=== PATIENT | female | born 1930 | race Caucasian/White ===

== ENCOUNTER 2016-12-15 12:40 | Inpatient (IN) | payer BC, OTHER ==
[~2016-12-15] VITALS: Ht 160 cm; Wt 56.5 kg
[~2016-12-15 12:40] MED LIST: AMB10 PO; BNC/20125 PO; NAPR250T3 PO; OXYC-57 PO; PROM25TA PO; SYN75 PO; TRAM-10 PO
[2016-12-15 13:08] LABS: HEMATOCRIT 30.7 % (37-47); MEAN CELL VOLUME 94.8 fL (80-100); MEAN CORPUSCULAR HEMOGLOBIN 31.5 pg (25-34); MEAN CORPUSCULAR HGB CONC 33.2 g/dl (32-36); MEAN PLATELET VOLUME 10.3 fL (7.4-10.4); PLATELET COUNT 164 K/uL (130-400); RED BLOOD COUNT 3.24 M/uL (4.2-5.4); WHITE BLOOD COUNT 6.08 K/uL (4.8-10.8)
[2016-12-15] MEDS ORDERED: SODIUM CHLORIDE 0.9% 500ML 500 ML IV STA (13:13)
[2016-12-15] MEDS ORDERED: SODIUM CHLORIDE 0.9% 1000ML 1,000 ML IV STA ×2 (13:13→14:36)
[2016-12-15 13:25] LABS: INR 1.1 (0.9-1.1); PARTIAL THROMBOPLASTIN RATIO 0.9; PROTHROMBIN TIME (PATIENT) 11.4 SECONDS (9.0-12.0)
[2016-12-15 13:26] LABS: BUN/CREATININE RATIO 67.4 (10-20); CREATININE 0.87 mg/dl (0.60-1.20); POTASSIUM 4.2 mmol/L (3.5-5.1)
[2016-12-15 13:29] LABS: ALB/GLOB RATIO 1.1 (0.9-2)
[2016-12-15] MEDS ORDERED: PANTOprazole INJ 80 MG in DEXTROSE 5% 100ML IV ONE (13:30)
[2016-12-15 13:34] LABS: CALCIUM 8.2 mg/dl (8.5-10.1)
[2016-12-15] MEDS ORDERED: PANTOprazole INJ 40 MG in DEXTROSE 5% 100ML IV SCH (13:45)
--- NOTE | 2016-12-15 13:45 | DIAGNOSTIC IMAGING REPORT ---
CHEST ONE VIEW PORTABLE CLINICAL HISTORY: vomiting DIARRHEA. COMPARISON STUDY: 12/21/2012 FINDINGS: The cardiac and mediastinal contours are normal. There is no evidence of focal pulmonary consolidation. There is no evidence of failure. No pleural effusions are visualized.[ Underlying emphysema is suspected. IMPRESSION: No active disease in the chest. Electronically signed by: David Espinal M.D. 12/15/2016 1:43 PM Dictated Date/Time: 12/15/2016 1:43 PM
[2016-12-15] MEDS ORDERED: ZOLPIDEM TARTRATE 5 MG TAB PO PRN (14:45)
[2016-12-15] MEDS ORDERED: MAGNESIUM HYDROXIDE SUSP 30 ML UDC PO PRN (14:45)
[2016-12-15] MEDS ORDERED: ALUMINUM/MAGNESIUM/SIMETH (MAALOX MAX) 30 ML UDC PO PRN (14:45)
[2016-12-15] MEDS ORDERED: POLYETHYLENE (MIRALAX) 17 GM PACK PO PRN (14:45)
[2016-12-15] MEDS ORDERED: ONDANSETRON INJ 2 MG/ML 2 ML VIAL IV PRN (14:45)
--- NOTE | 2016-12-15 15:21 | History and Physical ---
History & Physical Date & Time of Service: December 15, 2016 at 15:19 Chief Complaint: Diarrhea, Vomiting, Possible Blood In Both Primary Care Physician: Will Jones M.D. History of Present Illness Source: patient, family Ms. White is an 86 y/o female with PMHx of Hypothyroidism, Hypertension, and OA who presents to the ED for melena and hematemesis. Patient states that she was feeling well up until approximately 2 AM when she began feeling ill and had multiple episodes of diarrhea and hematemesis. These episodes occurred from 2 AM to approximately 5:30 AM and reports approximately 3 episodes of each. She reports the hematemesis was present from the very first emesis. She denies having similar symptoms in the past. Associated generalized weakness and lightheadedness. States she had difficulty ambulating to the bathroom due to this but denies falls. Daughter at bedside feels that patient appears pale. Patient also reports increased flatus over the past couple weeks but denies abdominal pain. Med reconciliation on file is inaccurate and she no longer takes naproxen. However she does report ASA 81 mg daily and takes Aleve once a day but does not know the dose. She does report taking more Aleve due to having limited tramadol. She reports having 1 glass of wine most nights of the week but does not drink in excess. She denies history of liver dysfunction. She denies history of EGD or colonoscopies. Patient reports eating for saltine crackers with some peanut butter and a decaffeinated tea at approximately 10:30 AM and no other oral intake. In the ED, patient is afebrile and without leukocytosis. Blood pressures systolic less than 100. Her patient her normal BPs are in low 100s. She received 500 mL bolus and started on protonix gtt. Hemoglobin 10.2. She will be admitted to telemetry for acute GI bleed. Discussed case with Dr. Lerner who is planning for EGD today. Past Medical/Surgical History Medical Problems: (1) Arthritis Status: Chronic (2) Hypothyroidism Status: Chronic Family History Hypertension Social History Smoking Status: Never Smoker Smokeless Tobacco Use: No Alcohol Use: occasionally (1 glass of wine most nights a week) Drug Use: none Marital Status: Occupational Status: retired Immunizations History of Tetanus Vaccine?: Unknown History of Pneumococcal: Unknown History of Hepatitis B Vaccine: Unknown Multi-Drug Resistant Organisms History of MDRO: No Allergies Coded Allergies: Codeine (Verified Allergy, Unknown, 09/05/09) Home Medications Scheduled Levothyroxine (Synthroid *), 0.075 MG PO DAILY Naproxen Tab (Naprosyn), 250 MG PO BID Olmesartan/Hctz (Benicar Hct 20/12.5), 1 TAB PO DAILY Oxycodone/Acetaminophen 5MG/325MG (Percocet 5MG/325MG), 1-2 TAB PO Q4HR PRN Promethazine (Phenergan), 25 MG PO Q6HR PRN Tramadol (Ultram), 37.5 MG PO Q4HR Zolpidem Tartrate (Ambien *), 10 MG PO HS PRN Review of Systems Constitutional: + fatigue, + problem reported (headache), + weakness ( generalized), No chills, No fever Eyes: No worsening of vision ENT: No nasal symptoms, No sore throat, No trouble swallowing Respiratory: No cough, No shortness of breath Cardiovascular: No chest pain, No palpitations Abdomen: + GI bleeding, + diarrhea, + nausea, + vomiting, No constipation, No pain Musculoskeletal: + joint pain (chronic - OA), No calf pain, No swelling Genitourinary - Female: No dysuria Integumentary: No rash Physical Exam Vital Signs Date Time Temp Pulse Resp B/P Pulse Ox O2 Delivery O2 Flow Rate FiO2 12/15/16 14:29 65 18 101/59 96 Room Air 12/15/16 13:48 74 18 95/57 95 Room Air 12/15/16 12:58 97 Room Air 12/15/16 12:57 97 Room Air 12/15/16 12:55 78 18 95/77 96 Room Air 12/15/16 12:54 81 12/15/16 12:45 36.7 95 18 95/58 95 Room Air General Appearance: WD/WN, no apparent distress Head: normocephalic, atraumatic Eyes: PERRL, sclerae normal ENT: hearing grossly normal Neck: supple, no JVD, trachea midline Respiratory/Chest: lungs clear, normal breath sounds, no respiratory distress, no accessory muscle use Cardiovascular: regular rate, rhythm, no gallop, no murmur Abdomen/GI: normal bowel sounds, non tender, soft Extremities/Musculoskelatal: no calf tenderness, no pedal edema Neurologic/Psych: alert, oriented x 3 Skin: warm/dry, + pallor Diagnostics Laboratory Results Results Past 24 Hours Test 12/15/16 12:52 Range/Units White Blood Count 6.08 4.8-10.8 K/uL Red Blood Count 3.24 4.2-5.4 M/uL Hemoglobin 10.2 12.0-16.0 g/dL Hematocrit 30.7 37-47 % Mean Corpuscular Volume 94.8 80-100 fL Mean Corpuscular Hemoglobin 31.5 25-34 pg Mean Corpuscular Hemoglobin Concent 33.2 32-36 g/dl RDW Standard Deviation 49.5 36.4-46.3 fL RDW Coefficient of Variation 14.3 11.5-14.5 % Platelet Count 164 130-400 K/uL Mean Platelet Volume 10.3 7.4-10.4 fL Prothrombin Time 11.4 9.0-12.0 SECONDS Prothromb Time International Ratio 1.1 0.9-1.1 Activated Partial Thromboplast Time 23.1 21.0-31.0 SECONDS Partial Thromboplastin Ratio 0.9 Sodium Level 137 136-145 mmol/L Potassium Level 4.2 3.5-5.1 mmol/L Chloride Level 103 98-107 mmol/L Carbon Dioxide Level 25 21-32 mmol/L Anion Gap 9.0 3-11 mmol/L Blood Urea Nitrogen 59 7-18 mg/dl Creatinine 0.87 0.60-1.20 mg/dl Est Creatinine Clear Calc Drug Dose 37.7 ml/min Estimated GFR () 69.4 Estimated GFR (Non- 59.9 BUN/Creatinine Ratio 67.4 10-20 Random Glucose 114 70-99 mg/dl Calcium Level 8.2 8.5-10.1 mg/dl Total Bilirubin 0.5 0.2-1 mg/dl Aspartate Amino Transf (AST/SGOT) 17 15-37 U/L Alanine Aminotransferase (ALT/SGPT) 23 12-78 U/L Alkaline Phosphatase 43 45-117 U/L Troponin I < 0.015 0-0.045 ng/ml Total Protein 5.9 6.4-8.2 gm/dl Albumin 3.1 3.4-5.0 gm/dl Globulin 2.8 2.5-4.0 gm/dl Albumin/Globulin Ratio 1.1 0.9-2 Diagnostic Radiology CHEST ONE VIEW PORTABLE CLINICAL HISTORY: vomiting DIARRHEA. COMPARISON STUDY: 12/21/2012 FINDINGS: The cardiac and mediastinal contours are normal. There is no evidence of focal pulmonary consolidation. There is no evidence of failure. No pleural effusions are visualized.[ Underlying emphysema is suspected. IMPRESSION: No active disease in the chest. EKG Sinus rhythm with marked sinus arrhythmia Nonspecific ST and T wave abnormality Low voltage QRS Borderline ECG When compared with ECG of 31-OCT-2006 16:22, No significant change was found Confirmed by David Chavez ([id number]) on 12/15/2016 2:22:47 PM Impression Assessment and Plan Ms. White is an 86 y/o female with PMHx of Hypothyroidism, Hypertension, and OA who presents to the ED for melena and hematemesis. Patient states that she was feeling well up until approximately 2 AM when she began feeling ill and had multiple episodes of diarrhea and hematemesis. Acute GI Bleed with Mild Hypotension 2/2 Gastric Ulceration: EGD 12/15 - 1 L NSS at 100 mL/hr stat then continue gentle hydration at 80 mL/hr - hypotension resolved - Continue protonix gtt - Trend H&H but suspect stablization S/P EGD intervention - if hgb would drop - consent for transfusion on chart - Consult GI - discussed case with Dr. 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 I discussed the case with PA and agree with the findings and plan as documented in the note. Any exceptions or clarifications are listed here: Fairly healthy elderly female with Hx hypothyroidism presenting with hematemesis and black liquidy stool x 1 day. Denied CP, SOB, light head - no previous Hx of GI bleed - does take ASA and Aleve daily in addition to drinking 1 glass wine QHS. OE AAO x 3 S1,2 R CTAB NT, ND, BS+ No edema P: Protonix Trend Hb and transfuse PRN GI consult IVF and antiemetics as needed Above discussed with PA and Pt Documented By: Alex Quigley Level of Care Telemetry Resuscitation Status FULL RESUSCITATION VTE Prophylaxis VTE Risk Assessment Done? Y/N: Yes Risk Level: Moderate Given or contraindicated: T.E.D. Stockings, SCD's
[2016-12-15] MEDS ORDERED: PROPOFOL IV EMULSION 10 MG/ML 20 ML VIAL IV ONE ×2 (15:58→16:30)
[2016-12-15] MEDS ORDERED: LIDOCAINE HCL 2% 2 ML VIAL (20MG/ML) ONE (15:58)
--- NOTE | 2016-12-15 16:11 | History & Physical Bridge Note ---
H&P Re-Evaluation Bridge Note: I have examined the patient, reviewed the History & Physical and in the interval since the performance of the History & Physical I have noted the following changes of clinical significance: AAOx3 Nls1s2 Lungs CTA Abd soft NT/ND + BS - CCE Plan for EGD possible hemostatic therapy
--- NOTE | 2016-12-15 16:22 | GASTROINTESTINAL CONSULTATION ---
DATE OF CONSULTATION: 12/15/2016 REASON FOR CONSULTATION: Hematemesis and melena. HISTORY OF PRESENT ILLNESS: Mrs. White is an 86-year-old white female in overall good health with hypothyroidism and hypertension who presented to the Emergency Room today with an approximate 1 day history of hematemesis and dark stools that were preceded by diarrhea. The patient usually takes an aspirin daily and perhaps one Aleve daily along with tramadol; however, she had run out of tramadol for the past week or so and had taken more Aleve over the last 5 days. There is also a naproxen scheduled at home. The patient has no prior peptic ulcer disease, has not had any weight loss or abdominal pain associated with this and had 3 episodes of hematemesis during this event. The patient has no prior history of peptic ulcer disease. There is no chronic weight loss. PAST MEDICAL HISTORY: As mentioned above including arthritis, hypothyroidism and hypertension. HOME MEDICATIONS: Include levothyroxine, naproxen 250 mg twice daily, hydrochlorothiazide (olmesartan/Benicar), Percocet, Phenergan, tramadol and Ambien. The patient also takes aspirin 325 mg daily. ALLERGIES: SHE IS ALLERGIC TO CODEINE. FAMILY HISTORY: Otherwise noncontributory. SOCIAL HISTORY: The patient denies tobacco and only occasionally drinks an alcoholic beverage. There is no chronic history of alcohol use. The patient is , lives with her daughter. REVIEW OF SYSTEMS: Otherwise noncontributory based on 14-point exam except for mentioned above. The patient does not experience chronic diarrhea or constipation. The patient presented to the Emergency Room at approximately 12:00 noon. PHYSICAL EXAMINATION: VITAL SIGNS: On admission - blood pressure 95/58, respirations 18, pulse 95, 36.7 temperature, O2 saturation is 95% on room air. Blood pressure responded to fluids. LABORATORY STUDIES: On admission, her white count was 6.0 with an H\T\H of 10.2 and 30.7 with an MCV of 94 and a normal RDW. Platelets are 164,000. INR is 1.1. LFTs were normal. BUN and creatinine were 59 and 0.8. Total bilirubin 0.5, alkaline phosphatase 43, ALT 23, AST 17. Troponins were less than 0.015. Albumin 3.1, total protein 5.9. IMAGING DATA: The patient underwent chest x-ray, which was unrevealing for active disease. EKG showed sinus arrhythmia, borderline EKG with low voltage. IMPRESSION AND PLAN: The patient with acute onset of hematemesis, diarrhea and melenic stools for short duration. The patient had recently increased her Aleve usage at home because her Ultram had run out and had not been yet provided by her insurance. It appears she is also on naproxen. The differential diagnosis likely includes non-steroidal anti-inflammatory drugs induced gastritis, peptic ulcer disease. It is possible that Nancy-Curry tear may be a culprit. There is no liver markers abnormal or chronic history of liver disease to suggest a portal hypertensive source. We made the following recommendations: Will continue IV fluids, PPI and follow hemoglobin q. 12 hours for 24 hours with hydration and will plan for an upper endoscopy today. Further recommendations to follow once the upper endoscopy is completed. We will discuss the need for a lower endoscopy depending on the results of the EGD that will happen over the next hour.
[2016-12-15] MEDS ORDERED: ONDANSETRON INJ 2 MG/ML 2 ML VIAL ONE (16:53)
[2016-12-15] MEDS ORDERED: ONDANSETRON INJ 2 MG/ML 2 ML VIAL IV STA (16:55)
--- NOTE | 2016-12-15 17:10 | Anesthesiology Progress Note ---
Anesthesia Post Op Note Date & Time December 15, 2016 at 17:10 Vital Signs Pain Intensity: 0 Vital Signs Past 12 Hours Date Time Temp Pulse Resp B/P Pulse Ox O2 Delivery O2 Flow Rate FiO2 12/15/16 17:02 75 16 157/88 97 Room Air 12/15/16 16:47 88 16 164/96 100 Mask 10 12/15/16 16:02 36.6 72 20 115/70 97 Room Air 12/15/16 14:29 65 18 101/59 96 Room Air 12/15/16 13:48 74 18 95/57 95 Room Air 12/15/16 12:58 97 Room Air 12/15/16 12:57 97 Room Air 12/15/16 12:55 78 18 95/77 96 Room Air 12/15/16 12:54 81 12/15/16 12:45 36.7 95 18 95/58 95 Room Air Notes Mental Status: alert / awake / arousable, participated in evaluation Pt Amnestic to Procedure: Yes Nausea / Vomiting: adequately controlled Pain: adequately controlled Airway Patency, RR, SpO2: stable & adequate BP & HR: stable & adequate Hydration State: stable & adequate Anesthetic Complications: no major complications apparent
--- NOTE | 2016-12-15 17:39 | GI REPORT ---
Procedure Date: 12/15/2016 4:10 PM Procedure: Upper GI endoscopy Indications: Hematemesis, Melena Medicines: Propofol per Anesthesia Complications: No immediate complications. Estimated blood loss: Minimal. Estimated Blood Loss: Estimated blood loss was minimal. Procedure: Pre-Anesthesia Assessment: - Prior to the procedure, a History and Physical was performed, and patient medications and allergies were reviewed. The patient's tolerance of previous anesthesia was also reviewed. The risks and benefits of the procedure and the sedation options and risks were discussed with the patient. All questions were answered, and informed consent was obtained. Prior Anticoagulants: The patient has taken no previous anticoagulant or antiplatelet agents. ASA Grade Assessment: II - A patient with mild systemic disease. After reviewing the risks and benefits, the patient was deemed in satisfactory condition to undergo the procedure. After obtaining informed consent, the endoscope was passed under direct vision. Throughout the procedure, the patient's blood pressure, pulse, and oxygen saturations were monitored continuously. The scope was introduced through the mouth, and advanced to the second part of duodenum. The upper GI endoscopy was accomplished without difficulty. The patient tolerated the procedure well. Findings: The examined esophagus was normal. A low-grade of narrowing, non-obstructing and mild Schatzki ring (acquired) was found at the gastroesophageal junction. A hiatus hernia was found. The proximal extent of the gastric folds (end of tubular esophagus) was 35 cm from the incisors. The hiatal narrowing was 38 cm from the incisors. The Z-line was 35 cm from the incisors. Hematin (altered blood/esjukf-ivsxdn-nchv material) was found in the entire examined stomach. One oozing cratered gastric ulcer with a visible vessel was found on the greater curvature of the stomach. The lesion was 25 mm in largest dimension. Area was successfully injected with 9 mL of a 1:10,000 solution of epinephrine for hemostasis. Fulguration to ablate the lesion to prevent bleeding by bipolar probe was successful. For hemostasis, two hemostatic clips were successfully placed (MR conditional). There was no bleeding at the end of the procedure. Hematin (altered blood/ktgkrm-vccrof-xyob material) was found in the entire examined stomach. An acquired benign-appearing, intrinsic mild stenosis was found at 2nd part of the duodenum and was traversed. The cardia and gastric fundus were normal on retroflexion. Impression: - Normal esophagus. - Low-grade of narrowing, non-obstructing and mild Schatzki ring. - Hiatus hernia. - Hematin (altered blood/ngfbiw-snreno-jtjm material) in the entire stomach. - Oozing gastric ulcer with a visible vessel. Injected. Treated with bipolar cautery. Clips (MR conditional) were placed. - Hematin (altered blood/agswxh-wojfka-xeok material) in the entire stomach. - Acquired duodenal stenosis. - No specimens collected. Recommendation: - [facility]. - Clear liquid diet today. - Repeat the upper endoscopy in 2 months to check healing and dilation of Schatzki ring.. - Use a proton pump inhibitor PO BID. - No aspirin, ibuprofen, naproxen, or other non-steroidal anti-inflammatory drugs. MD Kevin Costa MD 12/15/2016 5:39:12 PM This report has been signed electronically. Note Initiated On: 12/15/2016 4:10 PM I attest to the content of the Intraoperative Record and orders documented therein, exceptions below
--- NOTE | 2016-12-15 17:49 | EMERGENCY ROOM VISIT NOTE ---
History Report prepared by Kam: Ashely Headley Under the Supervision of: Dr. Davis Porras M.D. First contact with patient: 13:11 Chief Complaint: GI ASSESSMENT Stated Complaint: DIARRHEA, VOMITING, POSSIBLE BLOOD IN BOTH Nursing Triage Summary: Pt reports she had episodes of bright red blood in stool and bright red blood in emesis this am. pt reports feeling dizzy. pt denies any hx of gi bleed in the past. History of Present Illness The patient is an 86 year old female who presents to the Emergency Room with complaints of persistent diarrhea starting 0200 this morning. She was feeling well all day yesterday. When she went to bed, she was feeling well. She woke up around 0130, she felt unwell. She started having diarrhea and vomiting. She reports her diarrhea was very dark and she was vomiting blood. She had symptoms until 0530. She has never experienced this before. She reports feeling weak and lightheaded. Her daughter notes that she appears slightly pale. She denies any abdominal pain, chest pain, or SOB. She takes 1 baby aspirin a day. She is on a thyroid medication and tramadol for arthritis. Source of History: patient Onset: 0200 this morning Position: other (global) Quality: other (diarrhea) Timing: other (persistent) Associated Symptoms: + melena, + vomiting, + weakness, No SOB, No abdominal pain, No chest pain Note: Pt reports hematemesis, lightheadedness, pale. Review of Systems See HPI for pertinent positives & negatives. A total of 10 systems reviewed and were otherwise negative. Past Medical & Surgical Medical Problems: (1) Arthritis (2) Hypothyroidism (3) Melena Family History Non contributory secondary to age. Social History Smoking Status: Never Smoker Drug Use: none Marital Status: Occupation Status: retired Current/Historical Medications Scheduled Levothyroxine (Synthroid *), 0.075 MG PO DAILY Naproxen Tab (Naprosyn), 250 MG PO BID Olmesartan/Hctz (Benicar Hct 20/12.5), 1 TAB PO DAILY Oxycodone/Acetaminophen 5MG/325MG (Percocet 5MG/325MG), 1-2 TAB PO Q4HR PRN Promethazine (Phenergan), 25 MG PO Q6HR PRN Tramadol (Ultram), 37.5 MG PO Q4HR Zolpidem Tartrate (Ambien *), 10 MG PO HS PRN Allergies Coded Allergies: Codeine (Verified Allergy, Unknown, 09/05/09) Physical Exam Vital Signs Date Time Temp Pulse Resp B/P Pulse Ox O2 Delivery O2 Flow Rate FiO2 12/15/16 14:29 65 18 101/59 96 Room Air 12/15/16 13:48 74 18 95/57 95 Room Air 12/15/16 12:58 97 Room Air 12/15/16 12:57 97 Room Air 12/15/16 12:55 78 18 95/77 96 Room Air 12/15/16 12:54 81 12/15/16 12:45 36.7 95 18 95/58 95 Room Air Physical Exam GENERAL: Patient is in no acute distress. HEENT: No acute trauma, normocephalic atraumatic, mucous membranes moist, no nasal congestion, no scleral icterus. NECK: No stridor, no adenopathy, no meningismus, trachea is midline. LUNGS: Clear to auscultation bilaterally, no wheeze, no rhonchi, breath sounds equal. HEART: Without murmurs gallops or rubs, regular rate and rhythm. ABDOMEN: Soft, nontender, bowel sounds positive, no hernias, no peritonitis. RECTAL: Black stool, heme positive. EXTREMITIES: No cyanosis or edema, full range of motion of all the joints without pain or difficulty, no signs for acute trauma. NEUROLOGIC: Oriented x 3, no acute motor or sensory deficits, no focal weakness. SKIN: No rash, no jaundice, no diaphoresis. Medical Decision & Procedures ER Provider Diagnostic Interpretation: X-ray results as stated below per interpretation by me and the radiologist: CHEST ONE VIEW PORTABLE CLINICAL HISTORY: vomiting DIARRHEA. COMPARISON STUDY: 12/21/2012 FINDINGS: The cardiac and mediastinal contours are normal. There is no evidence of focal pulmonary consolidation. There is no evidence of failure. No pleural effusions are visualized.[ Underlying emphysema is suspected. IMPRESSION: No active disease in the chest. Electronically signed by: Dvaid Espinal M.D. 12/15/2016 1:43 PM Dictated Date/Time: 12/15/2016 1:43 PM Laboratory Results 12/15/16 12:52 12/15/16 12:52 Test 12/15/16 12:52 Red Blood Count 3.24 M/uL (4.2-5.4) Mean Corpuscular Volume 94.8 fL (80-100) Mean Corpuscular Hemoglobin 31.5 pg (25-34) Mean Corpuscular Hemoglobin Concent 33.2 g/dl (32-36) RDW Standard Deviation 49.5 fL (36.4-46.3) RDW Coefficient of Variation 14.3 % (11.5-14.5) Mean Platelet Volume 10.3 fL (7.4-10.4) Prothrombin Time 11.4 SECONDS (9.0-12.0) Prothromb Time International Ratio 1.1 (0.9-1.1) Activated Partial Thromboplast Time 23.1 SECONDS (21.0-31.0) Partial Thromboplastin Ratio 0.9 Anion Gap 9.0 mmol/L (3-11) Est Creatinine Clear Calc Drug Dose 37.7 ml/min Estimated GFR () 69.4 Estimated GFR (Non- 59.9 BUN/Creatinine Ratio 67.4 (10-20) Calcium Level 8.2 mg/dl (8.5-10.1) Total Bilirubin 0.5 mg/dl (0.2-1) Aspartate Amino Transf (AST/SGOT) 17 U/L (15-37) Alanine Aminotransferase (ALT/SGPT) 23 U/L (12-78) Alkaline Phosphatase 43 U/L (45-117) Troponin I < 0.015 ng/ml (0-0.045) Total Protein 5.9 gm/dl (6.4-8.2) Albumin 3.1 gm/dl (3.4-5.0) Globulin 2.8 gm/dl (2.5-4.0) Albumin/Globulin Ratio 1.1 (0.9-2) Laboratory results reviewed by me. Medications Administered Medications (Trade) Dose Ordered Sig/Cleopatra Route Start Time Stop Time Status Last Admin Dose Admin Sodium Chloride (Nss 500ml) 500 ml @ 999 mls/hr Q31M STAT IV 12/15/16 13:13 12/15/16 13:43 DC 12/15/16 13:42 999 MLS/HR Pantoprazole Sodium 1 ea 1 ea NOW STAT IV 12/15/16 13:13 12/15/16 13:16 DC 12/15/16 13:47 1 EA Pantoprazole Sodium 80 mg/ Dextrose 120 ml @ 480 mls/hr NOW ONCE IV 12/15/16 13:30 12/15/16 13:44 DC 12/15/16 13:47 480 MLS/HR Pantoprazole Sodium/Dextrose (Protonix Inj/D5 100ml) 100 ml @ 20 mls/hr Q5H IV 12/15/16 13:45 12/15/16 18:44 12/15/16 14:04 20 MLS/HR ECG Indication: vomiting, weakness Rate (beats per minute): 73 Rhythm: sinus rhythm (with some sinus arrythmia) Findings: no acute ischemic change, no ectopy ED Course 1312: The patient was evaluated in room A12B. A complete history and physical exam was performed. 1313: Pantoprazole Sodium 1 ea IV, NSS 500 ml @ 999 mls/hr IV. 1320: Upon reexamination the patient is resting comfortably. I discussed results and treatment plan with the patient. She verbalizes agreement and understanding. The patient will be evaluated for further management. 1327: I discussed the patient's case with Dr. Quigley, [facility]. The patient will be evaluated for further management. 1330: Pantoprazole Sodium 80 mg/Dextrose 120 ml @ 480 mls/hr IV. 1345: Pantoprazole Sodium 40 mg/Dextrose 100 ml @ 20 mls/hr IV. Medical Decision Differential diagnosis: anemia, upper or lower GI bleeding, electrolyte imbalance, infection, UTI, viral illness. There is no leukocytosis but the patient is anemic and this is a bout a 3 point drop for her. No significant electrolyte abnormality, kidney failure or hepatitis. There is no coagulopathy. EKG shows a sinus rhythm, no acute ischemia. Cardiac enzyme testing 1 is not consistent with acute chronic injury. Chest film does not show pneumonia or free air. On exam, the patient' s stool was black and heme positive. Patient received IV saline, she was given IV Protonix as a bolus and then placed on an IV Protonix drip. The patient requires admission/observation. She is likely suffering from an upper GI bleed. I suspect she will require an endoscopy. I discussed things with her. I spoke with case management. The on-call hospitalist was consulted. Consults Time Called: 1323 Consulting Physician: Dr. Quigley, [facility] - internal medicine Returned Call: 1327 I discussed the patient's case with him. The patient will be evaluated for further management. Impression Primary Impression: Upper GI bleed Additional Impressions: Anemia Hypotension Scribe Attestation The scribe's documentation has been prepared under my direction and personally reviewed by me in its entirety. I confirm that the note above accurately reflects all work, treatment, procedures, and medical decision making performed by me. Departure Information Dispostion Being Evaluated By Hospitalist Referrals Will Jones M.D. (PCP) Patient Instructions My [facility] Problem Qualifiers
[2016-12-15 18:09] VITALS: BP 152/85; PULSE 73; TEMP 37; O2SAT 97; Ht 160 cm; Wt 56.5 kg
[2016-12-15] MEDS: PANTOprazole INJ 40 MG in DEXTROSE 5% 100ML 100 ML IV SCH ×2 (18:47→23:45)
[2016-12-15 19:08] LABS: HEMATOCRIT 28.8 % (37-47)
[2016-12-15 20:09] VITALS: BP 104/68; PULSE 81; TEMP 36.7; O2SAT 96
[2016-12-15] MEDS: SODIUM CHLORIDE 0.9% 1000ML 1,000 ML IV SCH (23:15)
[2016-12-16] VITALS (7 sets, daily range): BP systolic 92–118; BP diastolic 55–74; PULSE 80–91; TEMP 36.7–37.1; O2SAT 94–97
[2016-12-16] MEDS: LEVOTHYROXINE 75 MCG TAB PO SCH (06:16)
[2016-12-16] MEDS: PANTOprazole INJ 40 MG in DEXTROSE 5% 100ML 100 ML IV SCH ×4 (06:18→20:38)
[2016-12-16 07:28] LABS: HEMATOCRIT 23.5 % (37-47); MEAN CELL VOLUME 95.1 fL (80-100); MEAN CORPUSCULAR HEMOGLOBIN 32.4 pg (25-34); MEAN PLATELET VOLUME 10.4 fL (7.4-10.4); PLATELET COUNT 116 K/uL (130-400); RED BLOOD COUNT 2.47 M/uL (4.2-5.4); WHITE BLOOD COUNT 4.65 K/uL (4.8-10.8)
[2016-12-16 08:02] LABS: BUN/CREATININE RATIO 33.9 (10-20); CALCIUM 7.6 mg/dl (8.5-10.1); CREATININE 0.84 mg/dl (0.60-1.20); POTASSIUM 3.8 mmol/L (3.5-5.1)
[2016-12-16 08:06] LABS: THYROID STIMULATING HORMONE 0.833 uIu/ml (0.300-4.500)
[2016-12-16] MEDS: SODIUM CHLORIDE 0.9% 1000ML 1,000 ML IV SCH ×2 (11:46→22:47)
--- NOTE | 2016-12-16 12:09 | Hospitalist Progress Note ---
Hospitalist Progress Note Date of Service December 16, 2016. (Delaney Menendez ., PASeveroC) Subjective Pt evaluation today including: conversation w/ patient, conversation w/ family , physical exam, chart review, lab review, review of studies, review of inpatient medication list Voiding: no voiding problems, no incontinence Patient states she is feeling well. +melena w/ BM this AM. Beginning to feel hungry; currently on liquid diet per GI. Patient denies any fever, chills, sweats, lightheadedness, dizziness, vision changes, CP, palpitations, edema, SOB , wheezing, cough, abdominal pain, nausea, vomiting, diarrhea, urinary symptoms , numbness/tingling, weakness, muscle/joint pain, anxiety/depression, active bleeding, or new skin discoloration/changes. (Delaney Menendez ., WOLF-C) Medications Current Inpatient Medications Medications (Trade) Dose Ordered Sig/Cleopatra Route Start Time Stop Time Status Last Admin Dose Admin Acetaminophen (Tylenol Tab) 650 mg Q4H PRN PO 12/15/16 14:45 01/14/17 14:44 Al Hydrox/Mg Hydrox/Simethicone (Maalox Max Susp) 15 ml Q4H PRN PO 12/15/16 14:45 01/14/17 14:44 Magnesium Hydroxide (Milk Of Magnesia Susp) 30 ml Q12H PRN PO 12/15/16 14:45 01/14/17 14:44 Zolpidem Tartrate (Ambien Tab) 5 mg HSZ PRN PO 12/15/16 14:45 01/14/17 14:44 Ondansetron HCl (Zofran Inj) 4 mg Q6H PRN IV 12/15/16 14:45 01/14/17 14:44 Polyethylene (Miralax Powder Packet) 17 gm DAILY PRN PO 12/15/16 14:45 01/14/17 14:44 Levothyroxine Sodium 75 mcg 75 mcg DAILYBB PO 12/16/16 06:30 01/15/17 06:29 12/16/16 06:16 75 MCG Sodium Chloride 1,000 ml @ 80 mls/hr [id number] IV 12/15/16 23:15 01/14/17 23:14 12/16/16 11:46 80 MLS/HR Pantoprazole Sodium/Dextrose (Protonix Inj/D5 100ml) 110 ml @ 20 mls/hr Q5H IV 12/16/16 06:00 01/15/17 05:59 12/16/16 11:23 20 MLS/HR (Delaney Menenedz, PA-C) Objective Vital Signs Date Time Temp Pulse Resp B/P Pulse Ox O2 Delivery O2 Flow Rate FiO2 12/16/16 11:14 36.7 90 18 92/58 97 Room Air 12/16/16 08:00 Room Air 12/16/16 07:18 37.1 82 20 93/55 94 Room Air 12/16/16 04:03 37.1 91 20 96/61 95 Room Air 12/16/16 04:00 Room Air 12/16/16 00:04 36.9 89 20 96/60 95 Room Air 12/16/16 00:00 Room Air 12/15/16 20:09 36.7 81 19 104/68 96 Room Air 12/15/16 20:00 Room Air 12/15/16 18:09 37.0 73 18 152/85 97 Room Air 12/15/16 17:17 81 16 157/76 99 Room Air 12/15/16 17:02 75 16 157/88 97 Room Air 12/15/16 16:47 88 16 164/96 100 Mask 10 12/15/16 16:02 36.6 72 20 115/70 97 Room Air 12/15/16 14:29 65 18 101/59 96 Room Air 12/15/16 13:48 74 18 95/57 95 Room Air 12/15/16 12:58 97 Room Air 12/15/16 12:57 97 Room Air 12/15/16 12:55 78 18 95/77 96 Room Air 12/15/16 12:54 81 12/15/16 12:45 36.7 95 18 95/58 95 Room Air (Delaney Menendez, PA-C) Physical Exam General Appearance: no apparent distress, + thin Eyes: normal inspection, PERRL ENT: hearing grossly normal Neck: supple Respiratory/Chest: lungs clear, no respiratory distress, no accessory muscle use Cardiovascular: regular rate, rhythm Abdomen: normal bowel sounds, non tender, soft Extremities: no pedal edema, no calf tenderness Neurologic/Psychiatric: alert, normal mood/affect, oriented x 3 Skin: normal color, warm/dry, no rash (Murarik, Delaney ., VILLA) Laboratory Results Last 24 Hours Test 12/15/16 12:52 12/15/16 18:51 12/16/16 00:34 12/16/16 07:02 White Blood Count 6.08 K/uL 4.65 K/uL Red Blood Count 3.24 M/uL 2.47 M/uL Hemoglobin 10.2 g/dL 9.8 g/dL 8.8 g/dL 8.0 g/dL Hematocrit 30.7 % 28.8 % 26.0 % 23.5 % Mean Corpuscular Volume 94.8 fL 95.1 fL Mean Corpuscular Hemoglobin 31.5 pg 32.4 pg Mean Corpuscular Hemoglobin Concent 33.2 g/dl 34.0 g/dl RDW Standard Deviation 49.5 fL 50.8 fL RDW Coefficient of Variation 14.3 % 14.7 % Platelet Count 164 K/uL 116 K/uL Mean Platelet Volume 10.3 fL 10.4 fL Prothrombin Time 11.4 SECONDS Prothromb Time International Ratio 1.1 Activated Partial Thromboplast Time 23.1 SECONDS Partial Thromboplastin Ratio 0.9 Sodium Level 137 mmol/L 145 mmol/L Potassium Level 4.2 mmol/L 3.8 mmol/L Chloride Level 103 mmol/L 113 mmol/L Carbon Dioxide Level 25 mmol/L 26 mmol/L Anion Gap 9.0 mmol/L 6.0 mmol/L Blood Urea Nitrogen 59 mg/dl 28 mg/dl Creatinine 0.87 mg/dl 0.84 mg/dl Est Creatinine Clear Calc Drug Dose 37.7 ml/min 39.0 ml/min Estimated GFR () 69.4 72.4 Estimated GFR (Non- 59.9 62.5 BUN/Creatinine Ratio 67.4 33.9 Random Glucose 114 mg/dl 94 mg/dl Calcium Level 8.2 mg/dl 7.6 mg/dl Total Bilirubin 0.5 mg/dl Aspartate Amino Transf (AST/SGOT) 17 U/L Alanine Aminotransferase (ALT/SGPT) 23 U/L Alkaline Phosphatase 43 U/L Troponin I < 0.015 ng/ml Total Protein 5.9 gm/dl Albumin 3.1 gm/dl Globulin 2.8 gm/dl Albumin/Globulin Ratio 1.1 Thyroid Stimulating Hormone (TSH) 0.833 uIu/ml (Delaney Menendez, PA-C) Assessment and Plan Ms. White is an 86 y/o female with PMHx of Hypothyroidism, Hypertension, and OA who presents to the ED for melena and hematemesis. Patient states that she was feeling well up until approximately 2 AM when she began feeling ill and had multiple episodes of diarrhea and hematemesis. Acute GI bleed, secondary to gastric ulceration w/ NSAID use: - IV NSS 80 mL/hr - Protonix gtt - Trend H&H - Consulted GI - EGD performed on 12/15 -- Cratered gastric ulcer with visible vessel in greater curvature of stomach - repeat EGD x 2 months -- Per GI recommendations, PO Protonix BID, but on drip; will continue Protonix drip at this time and confirm w/ Dr. Lerner -- Advance diet per GI recommendations Hypertension: - Hold Benicar due to hypotension Hypothyroidism: - Synthroid 75 mcg daily - TSH WNL OA: - Educated patient on NSAIDs and need for avoidance - Tylenol PRN pain GI prophylaxis: Protonix DVT Prophylaxis: MICHELLE/SCDs Code Status: FULL RESUSCITATION Disposition: Discharge to home once medically stable - Lives with daughter and son-in-law (Delaney Menendez, PA-C) PA Physician Supervision Note: I interviewed and examined the patient. Discussed with [Name of resident] and agree with findings and plan as documented in the note. Any exceptions or clarifications are listed here: None this pt feels well after EGD and intervention for gastric ulcer hgb is stable vitals stable abd is soft and non tender continue ppi discuss with GI regarding duration of ppi, may use concurrent carafate also Documented By: Rasheed Hairston (Rasheed Hairston M.D.)
[2016-12-16 13:24] LABS: HEMATOCRIT 27.2 % (37-47)
[2016-12-16] MEDS: ACETAMINOPHEN 325 MG TAB PO PRN ×2 (15:23→19:34)
--- NOTE | 2016-12-16 19:27 | GASTROENTEROLOGY PROGRESS NOTE ---
DATE: 12/16/2016 SUBJECTIVE: The patient tolerated EGD well and had no problems overnight. Today's morning bowel movement was still dark, although patient otherwise feels well. The patient was hungry and her diet was advanced this evening for regular meal which she has just started. The patient denies any abdominal pain, nausea or vomiting. LABORATORY STUDIES: The patient's hemoglobin this morning was at 8.0 and this afternoon at 1:00 p.m. was 9.1. CURRENT MEDICATIONS: Include; levothyroxine, pantoprazole drip, acetaminophen, Ambien and Zofran. REVIEW OF SYSTEMS: Otherwise noncontributory based on 14-point exam except for mentioned above. The patient underwent an upper endoscopy yesterday which found gastric ulcer along the greater curvature and biopsy of this were taken. There was no evidence for H. pylori infection based on these biopsies and no evidence for malignancy in the antrum. Chronic gastritis was noted. This does not represent samples from the ulcer itself. PHYSICAL EXAMINATION: Today; VITAL SIGNS: Blood pressure is 114/74, heart rate 82, respirations 16, 96% on room air. She is afebrile at 37.0. GENERAL: The patient is awake, alert and oriented x3, tolerating her oral intake. ABDOMEN: Soft, nontender and nondistended. Good bowel sounds. EXTREMITIES: Without edema. RECTAL: Deferred. LUNGS: Clear to auscultation. IMPRESSION: The patient with gastric ulcer, presumably due to increased Aleve use due to inability to obtain her Ultram. Going forward, I believe it is prudent for the patient to be managed for her musculoskeletal complaints with Tylenol and Ultram if possible. The patient should also continue PPI and could be switched to oral medication twice daily until repeat endoscopy in approximately 2 months can be performed. This would be to reassess the ulcer, consider treatment of the Schatzki ring as well. The patient never had a colonoscopy and if the patient is interested we can arrange this for the same date to exclude any lower gastrointestinal bleeding sources. If there is indication for aspirin or NSAIDs in the future, then the patient should maintain a dose of PPI daily to avoid mucosal injury. All questions were answered. We will plan for repeat endoscopy and perhaps colonoscopy in 2 months. We will sign off at this time. If you have any questions, please contact my office. Thank you for allowing me to participate in this patient's care. HARSHAL
[2016-12-17] VITALS (21 sets, daily range): BP systolic 93–151; BP diastolic 56–79; PULSE 73–142; TEMP 36.6–37; O2SAT 93–97
[2016-12-17] MEDS: PANTOprazole INJ 40 MG in DEXTROSE 5% 100ML 100 ML IV SCH ×5 (02:13→22:46)
[2016-12-17] MEDS: LEVOTHYROXINE 75 MCG TAB PO SCH (06:02)
[2016-12-17 08:04] LABS: MEAN CORPUSCULAR HEMOGLOBIN 30.8 pg (25-34); MEAN CORPUSCULAR HGB CONC 32.1 g/dl (32-36); MEAN PLATELET VOLUME 10.5 fL (7.4-10.4); PLATELET COUNT 131 K/uL (130-400); WHITE BLOOD COUNT 4.22 K/uL (4.8-10.8)
[2016-12-17 08:34] LABS: CREATININE 0.81 mg/dl (0.60-1.20); POTASSIUM 3.4 mmol/L (3.5-5.1)
[2016-12-17 09:01] LABS: CALCIUM 8.1 mg/dl (8.5-10.1)
[2016-12-17] MEDS ORDERED: METOPROLOL TARTRATE 1 MG/ML VIAL ONE (09:10)
[2016-12-17] MEDS ORDERED: METOPROLOL TARTRATE 1 MG/ML VIAL IV PRN (09:15)
[2016-12-17 10:15] LABS: MAGNESIUM 1.7 mg/dl (1.8-2.4)
[2016-12-17] MEDS ORDERED: SODIUM CHLORIDE 0.9% 1000ML 1,000 ML IV ONE (10:15)
--- NOTE | 2016-12-17 10:19 | Clinical Documentation Query ---
CLINICAL DOCUMENTATION QUERY 86 year old female with EGD confirmed acute gastric ulcer. The patient has dropped almost 3g/dl in Hgb. In your clinical opinion is this patient being managed for: ( xx ) Acute blood loss anemia in setting of GI bleed ( ) Other explanation of clinical findings (Please Explain) ( ) Unable to determine (Please Define) ( ) Need to Discuss ( ) Not Agree The medical record reflects the following clinical findings, treatment, and risk factors. Clinical Indicators: Hgb 7.7, Hct 24.0, tachycardia 142, Treatment: Emergent EGD, daily H/H's, IVF's, IV Lopressor Risk Factors: Age, bleeding gastric ulcer, home NSAID therapy Please clarify and document your clinical opinion in the progress notes and discharge summary. Terms such as "probable", "suspected", "likely", "questionable", "possible", or "still to be ruled out" are acceptable. IF IN AGREEMENT, YOU MUST DOCUMENT ABOVE DIAGNOSTIC STATEMENT IN DAILY PROGRESS NOTES AND DISCHARGE SUMMARY. This document is not part of the patient's record. Thank You, Juan Perez, RN [phone]
[2016-12-17] MEDS ORDERED: MAGNESIUM SULFATE 1GM / D5W 1 GM in PREMIXED IN D5W 100 ML IV ONE (10:30)
--- NOTE | 2016-12-17 10:57 | Hospitalist Progress Note ---
Hospitalist Progress Note Date of Service December 17, 2016. (Delaney Menendez ., AROLDOC) Subjective Pt evaluation today including: conversation w/ patient, physical exam, chart review, lab review, review of inpatient medication list Voiding: no voiding problems, no incontinence Patient states she is feeling well. Her diet was advanced by GI and tolerating well. Patient denies any fever, chills, sweats, lightheadedness, dizziness, vision changes, CP, palpitations, edema, SOB, wheezing, cough, abdominal pain, nausea, vomiting, diarrhea, urinary symptoms, melena, numbness/tingling, weakness, muscle/joint pain, anxiety/depression, active bleeding, or new skin discoloration/changes. When I saw patient this AM, hgb was pending and discussed discharge w/ patient. She was in agreement and felt well with no complaints. Hgb resulted at 7.7 and patient tachy. EKG was abnormal, likely secondary to tachycardia and anemia. IV Metoprolol PRN for HR >120, IV NSS bolus x1, cardiac enzymes negative, potassium of 3.4 replaced w/ 40 Yanci KCL supplement, mag of 1.7 replaced w/ IV Mag x1 dose. Left a message with nurse at Dr. Yann ewing. Made patient NPO and recheck hgb at 1100. (Delaney Menendez ., AROLDOC) Medications Current Inpatient Medications Medications (Trade) Dose Ordered Sig/Cleopatra Route Start Time Stop Time Status Last Admin Dose Admin Acetaminophen (Tylenol Tab) 650 mg Q4H PRN PO 12/15/16 14:45 01/14/17 14:44 12/16/16 19:34 650 MG Al Hydrox/Mg Hydrox/Simethicone (Maalox Max Susp) 15 ml Q4H PRN PO 12/15/16 14:45 01/14/17 14:44 Magnesium Hydroxide (Milk Of Magnesia Susp) 30 ml Q12H PRN PO 12/15/16 14:45 01/14/17 14:44 Zolpidem Tartrate (Ambien Tab) 5 mg HSZ PRN PO 12/15/16 14:45 01/14/17 14:44 Ondansetron HCl (Zofran Inj) 4 mg Q6H PRN IV 12/15/16 14:45 01/14/17 14:44 Polyethylene (Miralax Powder Packet) 17 gm DAILY PRN PO 12/15/16 14:45 01/14/17 14:44 Levothyroxine Sodium 75 mcg 75 mcg DAILYBB PO 12/16/16 06:30 01/15/17 06:29 12/17/16 06:02 75 MCG Sodium Chloride 1,000 ml @ 80 mls/hr [id number] IV 12/15/16 23:15 01/14/17 23:14 12/16/16 22:47 80 MLS/HR Pantoprazole Sodium/Dextrose (Protonix Inj/D5 100ml) 110 ml @ 20 mls/hr Q5H IV 12/16/16 06:00 01/15/17 05:59 12/17/16 06:03 20 MLS/HR Metoprolol Tartrate (Lopressor Iv) 5 mg Q6 PRN IV 12/17/16 09:15 01/16/17 09:14 Potassium Chloride 40 meq 40 meq QAM PO 12/18/16 09:00 01/17/17 08:59 Sodium Chloride 1,000 ml @ 999 mls/hr Q1H1M ONCE IV 12/17/16 10:15 12/17/16 11:15 12/17/16 10:29 999 MLS/HR Magnesium Sulfate/ Prmx (Magnesium Sulfate/Premixed D5W) 100 ml @ 100 mls/hr NOW ONCE IV 12/17/16 10:30 12/17/16 11:29 (Delaney Menendez, AROLDOC) Objective Vital Signs Date Time Temp Pulse Resp B/P Pulse Ox O2 Delivery O2 Flow Rate FiO2 12/17/16 09:30 139 112/76 12/17/16 09:17 139 116/76 12/17/16 08:46 142 110/74 96 Room Air 12/17/16 08:15 139 116/76 12/17/16 08:00 Room Air 12/17/16 07:44 36.9 84 19 117/74 95 Room Air 12/17/16 04:06 36.6 84 18 108/66 96 Room Air 12/17/16 04:00 96 Room Air 12/17/16 00:00 96 Room Air 12/16/16 23:11 36.9 80 16 112/68 96 Room Air 12/16/16 20:00 Room Air 5/18/17 19:08 36.8 85 16 118/72 96 Room Air 12/16/16 16:00 Room Air 12/16/16 15:24 37.0 82 16 114/74 96 Room Air 12/16/16 12:00 Room Air 12/16/16 11:14 36.7 90 18 92/58 97 Room Air (Delaney Menendez ., PA-C) Physical Exam General Appearance: no apparent distress, + thin Eyes: normal inspection, PERRL ENT: hearing grossly normal Neck: supple Respiratory/Chest: lungs clear, no respiratory distress, no accessory muscle use Cardiovascular: regular rate, rhythm Abdomen: normal bowel sounds, non tender, soft Extremities: no pedal edema, no calf tenderness Neurologic/Psychiatric: alert, normal mood/affect, oriented x 3 Skin: normal color, warm/dry, no rash (Delaney Menendez ., PA-C) Laboratory Results Last 24 Hours Test 12/16/16 13:05 12/17/16 07:27 12/17/16 09:05 12/17/16 09:23 Hemoglobin 9.1 g/dL 7.7 g/dL Hematocrit 27.2 % 24.0 % White Blood Count 4.22 K/uL Red Blood Count 2.50 M/uL Mean Corpuscular Volume 96.0 fL Mean Corpuscular Hemoglobin 30.8 pg Mean Corpuscular Hemoglobin Concent 32.1 g/dl RDW Standard Deviation 51.5 fL RDW Coefficient of Variation 14.8 % Platelet Count 131 K/uL Mean Platelet Volume 10.5 fL Sodium Level 146 mmol/L Potassium Level 3.4 mmol/L Chloride Level 114 mmol/L Carbon Dioxide Level 24 mmol/L Anion Gap 8.0 mmol/L Blood Urea Nitrogen 13 mg/dl Creatinine 0.81 mg/dl Est Creatinine Clear Calc Drug Dose 40.5 ml/min Estimated GFR () 75.7 Estimated GFR (Non- 65.3 BUN/Creatinine Ratio 16.0 Random Glucose 96 mg/dl Calcium Level 8.1 mg/dl Creatine Kinase MB Ratio Magnesium Level 1.7 mg/dl Creatine Kinase MB 3.0 ng/ml Troponin I < 0.015 ng/ml (Delaney Menendez ., PA-C) Assessment and Plan Ms. White is an 86 y/o female with PMHx of Hypothyroidism, Hypertension, and OA who presents to the ED for melena and hematemesis. Patient states that she was feeling well up until approximately 2 AM when she began feeling ill and had multiple episodes of diarrhea and hematemesis. Acute GI bleed, secondary to gastric ulceration w/ NSAID use: - IV NSS - Protonix gtt - Trend H&H -- AM hgb of 7.7 on 12/17 from 9.1 on 12/16- recheck hgb @ 1100 - Consulted GI - EGD performed on 12/15 -- Cratered gastric ulcer with visible vessel in greater curvature of stomach - repeat EGD x 2 months -- On 12/16, diet was advanced and GI signed off recommending PO Protonix until repeat EGD -- 12/17- drop in hgb and tachycardiac. Contacted Dr. Lerner's office, left message w/ nurse. ?repeat scope - NPO and IV NSS bolus x1 pending GI consult Tachycardia w/ EKG changes, likely secondary to blood loss: - Cardiac enzymes negative - Repeat EKG tomorrow AM and PRN w/ CP - Continue to follow hgb - Reconsult GI - IV Metoprolol PRN for HR >120 w/ hold parameters - IV NSS bolus Hypomagnesium w/ level of 1.7: - IV Mag x1 dose - Follow mag level Hypokalemia w/ level of 3.4: - Replaced w/ 40 mEq KCL supplement - Follow PRP h/o HTN w/ hypotension: - Hold Benicar due to hypotension- BPs well-controlled w/ no medication - IV NSS bolus x1 and increased IVF to 100 ml/hr Hypothyroidism: - Synthroid 75 mcg daily - TSH WNL OA: - Educated patient on NSAIDs and need for avoidance - Tylenol PRN pain GI prophylaxis: Protonix DVT Prophylaxis: MICHELLE/SCDs Code Status: FULL RESUSCITATION Disposition: Discharge to home once medically stable - Lives with daughter and son-in-law - PT/OT evaluations pending (Delaney Menendez, PA-C) PA Physician Supervision Note: I interviewed and examined the patient. Discussed with [Name of resident] and agree with findings and plan as documented in the note. Any exceptions or clarifications are listed here: None this pt feels weak, has had hgb drop again and has sinus tachycardia after EGD and intervention for gastric ulcer hgb has fallen again to <8 gm range vitals tachcyardia but stable bp abd is soft and non tender car is tachy no murmur acute blood loss anemia in setting of gi bleed, continue ppi discuss with GI regarding duration of ppi, may use concurrent carafate also given recent slid back of anemia and tachycardia continue to monitor and clear diet Documented By: Rasheed Hairston (Rasheed Hairston M.D.)
[2016-12-17 11:03] LABS: HEMATOCRIT 23.6 % (37-47)
[2016-12-17] MEDS: SODIUM CHLORIDE 0.9% 1000ML 1,000 ML IV SCH ×2 (11:31→22:47)
--- NOTE | 2016-12-17 16:41 | PROGRESS NOTE ---
DATE: 12/17/2016 SUBJECTIVE: The patient reports no abdominal pain, nausea or vomiting. She did have a very small dark bowel movement earlier today, but none since then. She is hungry. LABORATORY: Shows that her hemoglobin today has dropped from 9.1 yesterday to 7.8 today with no overt bleeding. Her BUN has dropped from 28 to 13, the BUN-creatinine ratio dropping from 34 to 16, suggesting that this is an equilibration phenomenon rather than recurrent or continued bleeding. OBJECTIVE: VITAL SIGNS: Show blood pressure 105/62, pulse 82. ABDOMEN: Soft and nontender. IMPRESSION: The patient had a gastric ulcer with bleeding, treated endoscopically [address] Lerner. It appears to have been treated successfully and her most recent drop in blood count appears to be from equilibration. At this point, the patient is doing well. I would advance her diet, but I think given her age and living circumstances, I think she would probably benefit from getting a couple units of blood today and if she does well, she may be able to go home tomorrow.
[2016-12-17 17:25] LABS: HEMATOCRIT 25.8 % (37-47)
[2016-12-17] MEDS ORDERED: DiphenhydrAMINE HCL 50 MG/ML VIAL IV STA (21:47)
[2016-12-17] MEDS ORDERED: NURSING VERBAL MED ORDER ONE (22:00)
[2016-12-18] MEDS: PANTOprazole INJ 40 MG in DEXTROSE 5% 100ML 100 ML IV SCH ×2 (03:20→07:43)
[2016-12-18 04:02] VITALS: BP 141/76; PULSE 86; TEMP 36.9; O2SAT 96
[2016-12-18 05:49] LABS: HEMATOCRIT 29.3 % (37-47); MEAN CELL VOLUME 94.2 fL (80-100); MEAN CORPUSCULAR HEMOGLOBIN 30.2 pg (25-34); MEAN CORPUSCULAR HGB CONC 32.1 g/dl (32-36); MEAN PLATELET VOLUME 10.4 fL (7.4-10.4); PLATELET COUNT 139 K/uL (130-400); RED BLOOD COUNT 3.11 M/uL (4.2-5.4)
[2016-12-18] MEDS: LEVOTHYROXINE 75 MCG TAB PO SCH (05:50)
[2016-12-18 06:23] LABS: BUN/CREATININE RATIO 9.4 (10-20); CREATININE 0.97 mg/dl (0.60-1.20); POTASSIUM 4.2 mmol/L (3.5-5.1)
[2016-12-18 07:22] VITALS: BP 122/76; PULSE 71; TEMP 36.6; O2SAT 97
[2016-12-18] MEDS: SODIUM CHLORIDE 0.9% 1000ML 1,000 ML IV SCH (07:43)
[2016-12-18 08:00] VITALS: O2SAT 97
[2016-12-18] MEDS ORDERED: POTASSIUM CHLORIDE 20 MEQ TABCR PO SCH (09:00)
[2016-12-18] MEDS ORDERED: PANT40TA PO (11:05)
[2016-12-18] MEDS ORDERED: SUCR1TAB29 PO (11:05)
--- NOTE | 2016-12-18 11:07 | Discharge Instructions ---
Discharge Instructions Date of Service December 18, 2016. Admission Reason for Admission: Melena Discharge Discharge Diagnosis / Problem: bleeding gastric ulcer requiring transfusion Discharge Goals Goal(s): Diagnostic testing, Therapeutic intervention Activity Recommendations Activity Limitations: resume your previous activity . Instructions / Follow-Up Instructions / Follow-Up Please take a vitamin twice a day for one month Current Hospital Diet Patient's current hospital diet: AHA Diet (Heart Healthy) Discharge Diet Recommended Diet: Regular Diet Procedures Procedures Performed: EGD with hemostatsis and biopsy Pending Studies Studies pending at discharge: no Medical Emergencies . Who to Call and When: Medical Emergencies: If at any time you feel your situation is an emergency, please call 911 immediately. . Non-Emergent Contact Non-Emergency issues call your: Primary Care Provider Call Non-Emergent contact if: temperature is above 101, your pain is unusual for you . . "Provider Documentation" section prepared by Rasheed Hairston. . VTE Core Measure Inpt VTE Proph given/why not?: Javier Salinas, SCD's
[2016-12-18 11:41] VITALS: BP 122/76; PULSE 71; TEMP 36.6; O2SAT 97
[2016-12-18 11:46] VITALS: BP 122/76; PULSE 71; TEMP 36.6; O2SAT 97
--- NOTE | 2016-12-18 16:02 | Discharge Summary ---
Discharge Summary Date of Service December 18, 2016. Discharge Summary Admission Date: December 15, 2016 at 14:44 Discharge Date: December 18, 2016 Discharge Disposition: Home Principal Diagnosis: gastric ulcer with visable vessel Immunizations: History of Tetanus Vaccine?: Unknown History of Pneumococcal: Unknown History of Hepatitis B Vaccine: Unknown Discharge Exam Review of Systems: Constitutional: No chills, No fever Respiratory: No cough, No sputum, No wheezing Cardiovascular: No PND, No chest pain Abdomen: No nausea, No pain, No vomiting Physical Exam: General Appearance: WD/WN, no apparent distress Neck: supple, no JVD Respiratory/Chest: chest non-tender, lungs clear, normal breath sounds Cardiovascular: regular rate, rhythm, no murmur Abdomen / GI: normal bowel sounds, non tender, soft Hospital Course Ms. White is an 86 y/o female with PMHx of Hypothyroidism, Hypertension, and OA who presents to the ED for melena and hematemesis, found to have a gastric ulcer with a visable vessel that was cliped, injected and cauterized, did require 3 units of blood Acute GI bleed, secondary to gastric ulceration w/ NSAID use: - EGD performed on 12/15 -- Cratered gastric ulcer with visible vessel in greater curvature of stomach 2 Units PRBC - repeat EGD x 2 months -- On 12/16, diet was advanced and GI signed off recommending PO Protonix -- 12/17- drop in hgb and tachycardiac. additional unit of blood given for hgb <8 educated on no nsaids, limited cafiene and no alcohol, recommened follow up with Dr Jones in one week Protonix bid and carafate qid, carafate for one week Tachycardia from blood loss, resolved with ivf and transfusion Hypomagnesium/Hypokalemia relete Hypothyroidism: Synthroid 75 mcg daily- TSH WNL DVT Prophylaxis: MICHELLE/SCDs Code Status: FULL RESUSCITATION Total Time Spent: Greater than 30 minutes This includes examination of the patient, discharge planning, medication reconciliation, and communication with other providers. Discharge Instructions Please refer to the electronic Patient Visit Report (Discharge Instructions) for additional information. Additional Copies To Kevin Lerner M.D.
[2017-03-02] MEDS ORDERED: GLUCTAB7 PO (15:08)
[2017-03-02] MEDS ORDERED: ZOLP5TAB PO (15:08)
[2017-03-02] MEDS ORDERED: LEVO75TA5 PO (15:08)
[2017-03-02] MEDS ORDERED: TRAMTAB5 PO (15:08)
[2017-03-02] MEDS ORDERED: PRENTAB26 PO (15:08)
[2017-03-02] MEDS ORDERED: BIMA0.01 OPB (15:10)
[2017-03-02] MEDS ORDERED: FOCUS SELECT PO (15:10)
[2017-03-02] MEDS ORDERED: DORZ1SOL6 OPB (15:10)
== END 2016-12-18 12:25 | disposition home or self-care (01) | DRG 378 ==
LOC: ENRESERVDT → ENRESERVTM → C.EDB 12:42 → C.MED 14:44
PROVIDERS: ADMIT Internal Medicine; ATTEND Internal Medicine
PROC: 0W3P8ZZ Control Bleeding in Gastrointestinal Tract, Via Natural or Artificial Opening Endoscopic (ICD-10-PCS; principal; 2016-12-15 15:56)
DX: K25.4 Chronic or unspecified gastric ulcer with hemorrhage (principal); D62 Acute posthemorrhagic anemia; E03.9 Hypothyroidism, unspecified; I10 Essential (primary) hypertension; T39.395A Adverse effect of other nonsteroidal anti-inflammatory drugs [NSAID], initial encounter; R00.0 Tachycardia, unspecified; D50.0 Iron deficiency anemia secondary to blood loss (chronic); E83.42 Hypomagnesemia; E87.6 Hypokalemia; K22.2 Esophageal obstruction; Z82.49 Family history of ischemic heart disease and other diseases of the circulatory system; M19.90 Unspecified osteoarthritis, unspecified site

== ENCOUNTER → 2016-12-21 | Outpatient (CLI) | payer BC ==
[~2016-12-21] MED LIST changes: +BIMA0.01 OPB; +DORZ1SOL6 OPB; +FOCUS SELECT PO; +GLUCTAB7 PO; +LEVO75TA5 PO; -NAPR250T3 PO; +PANT40TA PO; +PRENTAB26 PO; +SUCR1TAB29 PO; +TRAMTAB5 PO; +ZOLP5TAB PO
[2016-12-21 16:53] LABS: BASO % 0.7 %; BASO ABS # 0.03 K/uL (0-0.2); COMPLETE YES; EOS % 10.3 %; HEMATOCRIT 31.2 % (37-47); LYMPH % 27.5 %; LYMPH ABS # 1.18 K/uL (1.2-3.4); MEAN CELL VOLUME 94.8 fL (80-100); MEAN CORPUSCULAR HEMOGLOBIN 31.3 pg (25-34); MEAN PLATELET VOLUME 10.5 fL (7.4-10.4); MONO % 13.1 %; NEUT % 48.4 %; PLATELET COUNT 221 K/uL (130-400); RED BLOOD COUNT 3.29 M/uL (4.2-5.4); WHITE BLOOD COUNT 4.29 K/uL (4.8-10.8)
[2016-12-21 17:36] LABS: ALT/SGPT 38 U/L (12-78); AST/SGOT 21 U/L (15-37); BLOOD UREA NITROGEN 19 mg/dl (7-18); CALCIUM 8.3 mg/dl (8.5-10.1); CARBON DIOXIDE 29 mmol/L (21-32); CHLORIDE 105 mmol/L (98-107); GLUCOSE 92 mg/dl (70-99); POTASSIUM 3.8 mmol/L (3.5-5.1); SODIUM 142 mmol/L (136-145)
[2016-12-21 17:47] LABS: ALB/GLOB RATIO 1.1 (0.9-2); ALKALINE PHOSPHATASE 57 U/L (45-117); CHOLESTEROL 169 mg/dl (0-200); HDL CHOLESTEROL 57 mg/dl; LDL CHOLESTEROL CALCULATED 97 mg/dl; TRIGLYCERIDES 74 mg/dl (0-150); VERY LOW DENSITY LIPOPROT CALC 15 mg/dl
--- NOTE | 2016-12-28 13:43 | CODING QUERY MEDICAL NECESSITY ---
CQSUPPORTING DIAGNOSIS NEEDED A supporting diagnosis is required for the test/procedure performed on this patient in order for us to be reimbursed by the patient's insurance. Please provide a supporting diagnosis for the following test/procedure listed below next to the test name along with your signature. *If there is no additional diagnosis for this patient that would support the following test/procedure please document that below next to the test/procedure. Test(s)/Procedure(s) that require a supporting diagnosis: DOS 12/21/16 VITAMIN D TEST Provider Signature: Date: Thank you Holley Beal Health Information Management Once completed, please kindly fax back to [phone] For questions please call [phone]
== END | disposition home or self-care (01) ==
LOC: C.LAB 15:33
PROVIDERS: ATTEND Internal Medicine
DX: I10 Essential (primary) hypertension (principal); R07.81 Pleurodynia; M81.0 Age-related osteoporosis without current pathological fracture

== ENCOUNTER → 2017-01-25 | Outpatient (CLI) | payer BC ==
[~2017-01-25] MED LIST changes: -BIMA0.01 OPB; -DORZ1SOL6 OPB; -FOCUS SELECT PO; -GLUCTAB7 PO; -LEVO75TA5 PO; -PRENTAB26 PO; -SUCR1TAB29 PO; -TRAMTAB5 PO; -ZOLP5TAB PO
[2017-01-25 17:21] LABS: BASO % 1.2 %; BASO ABS # 0.05 K/uL (0-0.2); COMPLETE YES; HEMATOCRIT 36.8 % (37-47); IG% 0.2 %; LYMPH % 34.7 %; LYMPH ABS # 1.48 K/uL (1.2-3.4); MEAN CELL VOLUME 94.8 fL (80-100); MEAN CORPUSCULAR HEMOGLOBIN 30.7 pg (25-34); MEAN CORPUSCULAR HGB CONC 32.3 g/dl (32-36); MEAN PLATELET VOLUME 10.7 fL (7.4-10.4); MONO % 13.3 %; NEUT % 42.6 %; PLATELET COUNT 245 K/uL (130-400); RED BLOOD COUNT 3.88 M/uL (4.2-5.4); WHITE BLOOD COUNT 4.27 K/uL (4.8-10.8)
[2017-01-25 17:26] LABS: ALT/SGPT 29 U/L (12-78); BLOOD UREA NITROGEN 16 mg/dl (7-18); BUN/CREATININE RATIO 16.1 (10-20); CALCIUM 9.3 mg/dl (8.5-10.1); CARBON DIOXIDE 29 mmol/L (21-32); CHLORIDE 105 mmol/L (98-107); GLUCOSE 77 mg/dl (70-99); POTASSIUM 4.2 mmol/L (3.5-5.1); SODIUM 140 mmol/L (136-145)
[2017-01-25 17:31] LABS: ALKALINE PHOSPHATASE 56 U/L (45-117); AST/SGOT 21 U/L (15-37); FERRITIN 30.7 ng/ml (8.0-388.0)
== END | disposition home or self-care (01) ==
LOC: C.LABBC 13:24
PROVIDERS: ATTEND Internal Medicine
DX: I10 Essential (primary) hypertension (principal); K25.9 Gastric ulcer, unspecified as acute or chronic, without hemorrhage or perforation

== ENCOUNTER → 2017-03-31 | Day surgery (SDC) | payer BC ==
[2017-03-02 15:12] VITALS: Ht 161.3 cm; Wt 55.0 kg
[~2017-03-31] VITALS: Ht 161.3 cm; Wt 55.0 kg
[~2017-03-31] MED LIST changes: -AMB10 PO; +BIMA0.01 OPB; +DORZ1SOL6 OPB; +FOCUS SELECT PO; +GLUCTAB7 PO; +LEVO75TA5 PO; +LIDOCAINE HCL 2% 2 ML VIAL (20MG/ML) ONE; -OXYC-57 PO; -PANT40TA PO; +PRENTAB26 PO; -PROM25TA PO; +PROPOFOL IV EMULSION 10 MG/ML 20 ML VIAL IV ONE; +SODIUM CHLORIDE 0.9% 500ML 500 ML IV ONE; -SYN75 PO; -TRAM-10 PO; +TRAMTAB5 PO; +ZOLP5TAB PO
--- NOTE | 2017-03-31 13:37 | Endo History and Physical ---
History & Physical Date of Service: Mar 31, 2017. Chief Complaint: gastric ulcer,screening Referring Physician: Dr. Will Jones History of Present Illness F/U and screening colon ( initial exam) Past Surgical History Hx Cardiac Surgery: No Hx Internal Defibrillator: No Hx Pacemaker: No Hx Abdominal Surgery: Yes (ALKA) Hx of Implantable Prosthesis: No Hx Post-Op Nausea and Vomiting: No Hx Cancer Surgery: No Hx Thoracic Surgery: No Hx Orthopedic: Yes (RT FOOT SURGERY) Hx Urinary Tract Surgery: No Family History None Social History Smoking Status: Never Smoker Hx Substance Use: No Hx Alcohol Use: Yes (1 GLASS WINE NIGHTLY) Allergies Coded Allergies: Codeine (Verified Allergy, Unknown, UNABLE TO SLEEP, 03/02/17) Current Medications Reported Home Medications Medications Dose Route/Sig Max Daily Dose Days Date Category [Focus Select] 1 Tab PO QAM 03/02/17 Reported Lumigan (Bimatoprost) 0.01 % Kim 1 Drops OPB HS 03/02/17 Reported Cosopt Oph (Dorzolamide Hcl-Timolol Maleat) 1 Kim Kim 1 Drops OPB BID 03/02/17 Reported Glucosamine Chondroitin (Scumpczufoq-Optetrgupad-Ryt C-) 1 Tab Tab 1 Tab PO QAM 03/02/17 Reported Ambien (Zolpidem Tartrate) 5 Mg Tab 5 Mg PO HS PRN 03/02/17 Reported Vitamin (Prenat Multivit/[place]/Iron/Folic Ac) Tab 1 Tab PO QAM 03/02/17 Reported Ultracet (Tramadol/Acetaminophen) 37.5 Mg/325 Mg Tab 1 Tab PO QID PRN 03/02/17 Reported Levothyroxine Sodium 75 Mcg Tab 1 Tab PO QAM 03/02/17 Reported Benicar Hct 20/12.5 (Olmesartan/HCTZ) Tab 1 Tab PO QAM 10/13/08 Reported Vital Signs Weight (Kilograms): 55 Height (Feet): 5 Height (Inches): 3.5 Date Time Temp Pulse Resp B/P (MAP) Pulse Ox O2 Delivery O2 Flow Rate FiO2 03/31/17 12:36 36.8 85 18 126/77 (93) 96 Room Air Physical Exam AAOx3 Nl s1s2 Lungs CTA ABd soft NT/ND + BS - CCE Assessment and Plan EGD and colon
--- NOTE | 2017-03-31 14:19 | GI REPORT ---
Procedure Date: 03/31/2017 1:40 PM Procedure: Colonoscopy Indications: Screening for colorectal malignant neoplasm, This is the patient's first colonoscopy Medicines: Propofol per Anesthesia Complications: No immediate complications. Estimated blood loss: Minimal. Estimated Blood Loss: Estimated blood loss was minimal. Procedure: Pre-Anesthesia Assessment: - Prior to the procedure, a History and Physical was performed, and patient medications and allergies were reviewed. The patient's tolerance of previous anesthesia was also reviewed. The risks and benefits of the procedure and the sedation options and risks were discussed with the patient. All questions were answered, and informed consent was obtained. Prior Anticoagulants: The patient has taken no previous anticoagulant or antiplatelet agents. ASA Grade Assessment: II - A patient with mild systemic disease. After reviewing the risks and benefits, the patient was deemed in satisfactory condition to undergo the procedure. After I obtained informed consent, the scope was passed under direct vision. Throughout the procedure, the patient's blood pressure, pulse, and oxygen saturations were monitored continuously. The scope was introduced through the anus and advanced to the cecum, identified by the appendiceal orifice, ileocecal valve and palpation. The colonoscopy was performed without difficulty. The patient tolerated the procedure well. The quality of the bowel preparation was good. Findings: The perianal and digital rectal examinations were normal. Pertinent negatives include normal sphincter tone, no palpable rectal lesions and no anal lesion or abnormality was detected. A few small-mouthed diverticula were found in the sigmoid colon. A 2 mm polyp was found in the ascending colon. The polyp was sessile. The polyp was removed with a cold biopsy forceps. Resection and retrieval were complete. Estimated blood loss was minimal. Verification of patient identification for the specimen was done by the physician and mobile home technician using the patient's name and medical record number. A 7 mm polyp was found at 20 cm proximal to the anus. The polyp was sessile. The polyp was removed with a cold snare. Resection and retrieval were complete. Estimated blood loss was minimal. Verification of patient identification for the specimen was done by the physician and mobile home technician using the patient's name and medical record number. The exam was otherwise normal throughout the examined colon. The retroflexed view of the distal rectum and anal verge was normal and showed no anal or rectal abnormalities. Impression: - Diverticulosis in the sigmoid colon. - One 2 mm polyp in the ascending colon, removed with a cold biopsy forceps. Resected and retrieved. - One 7 mm polyp at 20 cm proximal to the anus, removed with a cold snare. Resected and retrieved. - The distal rectum and anal verge are normal on retroflexion view. Recommendation: - Discharge patient to home (ambulatory). - Resume regular diet. - Continue present medications. - Await pathology results. - Repeat colonoscopy for surveillance based on pathology results. - Return to referring physician as previously scheduled. MD Kevin Costa MD 03/31/2017 2:18:50 PM This report has been signed electronically. Note Initiated On: 03/31/2017 1:40 PM I attest to the content of the Intraoperative Record and orders documented therein, exceptions below
--- NOTE | 2017-03-31 14:33 | GI REPORT ---
Procedure Date: 03/31/2017 1:41 PM Procedure: Upper GI endoscopy Indications: Acute gastric ulcer, Follow-up of acute gastric ulcer Medicines: Propofol per Anesthesia Complications: No immediate complications. Estimated blood loss: Minimal. Estimated Blood Loss: Estimated blood loss was minimal. Procedure: Pre-Anesthesia Assessment: - Prior to the procedure, a History and Physical was performed, and patient medications and allergies were reviewed. The patient's tolerance of previous anesthesia was also reviewed. The risks and benefits of the procedure and the sedation options and risks were discussed with the patient. All questions were answered, and informed consent was obtained. Prior Anticoagulants: The patient has taken no previous anticoagulant or antiplatelet agents. ASA Grade Assessment: II - A patient with mild systemic disease. After reviewing the risks and benefits, the patient was deemed in satisfactory condition to undergo the procedure. After obtaining informed consent, the endoscope was passed under direct vision. Throughout the procedure, the patient's blood pressure, pulse, and oxygen saturations were monitored continuously. The scope was introduced through the mouth, and advanced to the third part of duodenum. The upper GI endoscopy was accomplished without difficulty. The patient tolerated the procedure well. Findings: The examined esophagus was normal. A small hiatus hernia was found. The proximal extent of the gastric folds (end of tubular esophagus) was 35 cm from the incisors. The hiatal narrowing was 38 cm from the incisors. The Z-line was 35 cm from the incisors. Diffuse mild inflammation characterized by erythema was found in the entire examined stomach. Biopsies were taken with a cold forceps for histology. Verification of patient identification for the specimen was done by the physician and hydro technician using the patient's name and medical record number. An acquired benign-appearing, intrinsic mild stenosis was found at 2nd part of the duodenum and was traversed. The exam of the duodenum was otherwise normal. The cardia and gastric fundus were normal on retroflexion. An endoclip was found on the greater curvature of the stomach. Retained gastric contents are not identified on this exam. The exam of the stomach was otherwise normal. Impression: - Normal esophagus. - Small hiatus hernia. - Acute gastritis. Biopsied. - Acquired duodenal stenosis. - An endoclip was found in the stomach. Recommendation: - Discharge patient to home (ambulatory). - Advance diet as tolerated. - Continue present medications. - No aspirin, ibuprofen, naproxen, or other non-steroidal anti-inflammatory drugs. MD Kevin Costa MD 03/31/2017 2:33:07 PM This report has been signed electronically. Note Initiated On: 03/31/2017 1:41 PM I attest to the content of the Intraoperative Record and orders documented therein, exceptions below
--- NOTE | 2017-03-31 14:38 | Anesthesiology Progress Note ---
Anesthesia Post Op Note Date & Time Mar 31, 2017 at 14:38 Vital Signs Pain Intensity: 0 Vital Signs Past 12 Hours Date Time Temp Pulse Resp B/P (MAP) Pulse Ox O2 Delivery O2 Flow Rate FiO2 03/31/17 14:35 72 18 129/77 (94) 95 Room Air 03/31/17 14:17 101 18 115/72 (86) 96 Room Air 03/31/17 12:36 36.8 85 18 126/77 (93) 96 Room Air Notes Mental Status: alert / awake / arousable, participated in evaluation Pt Amnestic to Procedure: Yes Nausea / Vomiting: adequately controlled Pain: adequately controlled Airway Patency, RR, SpO2: stable & adequate BP & HR: stable & adequate Hydration State: stable & adequate Anesthetic Complications: no major complications apparent
--- NOTE | 2017-03-31 14:41 | Discharge Instructions ---
Endoscopy Patient Instructions Date / Procedure(s) Performed Mar 31, 2017. Colonoscopy, EGD Allergy Information Coded Allergies: Codeine (Verified Allergy, Unknown, UNABLE TO SLEEP, 03/02/17) Discharge Date / Findings Mar 31, 2017. EGD with gastritis- prior healed colon polyps Medication Instructions Restart Stopped Medication(s): Reported Home Medications Medications Dose Route/Sig Max Daily Dose Days Date Category [Focus Select] 1 Tab PO QAM 03/02/17 Reported Lumigan (Bimatoprost) 0.01 % Kim 1 Drops OPB HS 03/02/17 Reported Cosopt Oph (Dorzolamide Hcl-Timolol Maleat) 1 Kim Kim 1 Drops OPB BID 03/02/17 Reported Glucosamine Chondroitin (Tjuryxfplqn-Iqtptwjzuff-Kxj C-) 1 Tab Tab 1 Tab PO QAM 03/02/17 Reported Ambien (Zolpidem Tartrate) 5 Mg Tab 5 Mg PO HS PRN 03/02/17 Reported Vitamin (Prenat Multivit/Technical Services Representative/Iron/Folic Ac) Tab 1 Tab PO QAM 03/02/17 Reported Ultracet (Tramadol/Acetaminophen) 37.5 Mg/325 Mg Tab 1 Tab PO QID PRN 03/02/17 Reported Levothyroxine Sodium 75 Mcg Tab 1 Tab PO QAM 03/02/17 Reported Benicar Hct 20/12.5 (Olmesartan/HCTZ) Tab 1 Tab PO QAM 10/13/08 Reported Reported Home Medications Medications Dose Route/Sig Max Daily Dose Days Date Category [Focus Select] 1 Tab PO QAM 03/02/17 Reported Lumigan (Bimatoprost) 0.01 % Kim 1 Drops OPB HS 03/02/17 Reported Cosopt Oph (Dorzolamide Hcl-Timolol Maleat) 1 Kim Kim 1 Drops OPB BID 03/02/17 Reported Glucosamine Chondroitin (Ylhxflrhkvl-Snttjasatto-Nes C-) 1 Tab Tab 1 Tab PO QAM 03/02/17 Reported Ambien (Zolpidem Tartrate) 5 Mg Tab 5 Mg PO HS PRN 03/02/17 Reported Vitamin (Prenat Multivit/[place]/Iron/Folic Ac) Tab 1 Tab PO QAM 03/02/17 Reported Ultracet (Tramadol/Acetaminophen) 37.5 Mg/325 Mg Tab 1 Tab PO QID PRN 03/02/17 Reported Levothyroxine Sodium 75 Mcg Tab 1 Tab PO QAM 03/02/17 Reported Benicar Hct 20/12.5 (Olmesartan/HCTZ) Tab 1 Tab PO QAM 10/13/08 Reported Provider Instructions Activity Restrictions - No exercising or heavy lifting for 24 hours. - Do not drink alcohol the day of the procedure. - Do not drive a car or operate machinery until the day after the procedure. - Do not make any important decisions or sign important papers in 24 hours after the procedure. Following Day: - Return to full activity which may include returning to work/school. Diet Start your diet with liquids and light foods (jello, soup, juice, toast). Then eat your usual diet if not nauseated. Treatment For Common After Affects For mild abdominal pain, bloating, or excessive gas: - Rest - Eat lightly - Lie on right side Follow-Up Information Follow-up with Dr. Will Jones as scheduled Anesthesia Information What You Should Know You have had a procedure that required some medicine to reduce anxiety and discomfort. This treatment is called moderate sedation. After receiving the treatment, you may be sleepy, but you will be able to breathe on your own. The effects of the treatment may last for several hours. Follow these instructions along with Activity/Diet recommendations noted above: * Do NOT do anything where dizziness or clumsiness would be dangerous. * Rest quietly at home today, then you can be up and about tomorrow. * Have a responsible person stay with you the rest of today. * You may have had an I.V. today. If so, you may take the dressing off later today. Recommendations Call your doctor if: * Trouble breathing * Continuous vomiting for more than 24 hours * Temperature above 101 degrees * Severe abdominal pain or bloating * Pain not relieved by pain medicine ordered * There is increased drainage or redness from any incision * A large amount of rectal bleeding greater than 2-3 tablespoons. (If you had a polyp/s removed or have hemorrhoids, a small amount of blood - from the rectum is to be expected.) * You have any unanswered questions or concerns. IN THE EVENT OF A SERIOUS EMERGENCY, GO TO THE NEAREST EMERGENCY ROOM Your discharge instructions were prepared by provider Kevin Lerner. Patient Instructions Signature Page Nasima White Patient (or Guardian) Signature/Date: I have read and understand the instructions given to me by my caregivers. Caregiver/RN/Doctor Signature/Date: The above-named patient and/or guardian has received patient instructions on this date. + Original Patient Signature Page (only) stays with chart. Please make copy for patient.
[2017-03-31 14:53] VITALS: BP 127/96; PULSE 73; O2SAT 99
== END | disposition home or self-care (01) ==
LOC: C.GI 12:15
PROVIDERS: ATTEND Internal Medicine Gastroenterology
DX: Z12.11 Encounter for screening for malignant neoplasm of colon (principal); K29.00 Acute gastritis without bleeding; K29.50 Unspecified chronic gastritis without bleeding; D12.9 Benign neoplasm of anus and anal canal; K44.9 Diaphragmatic hernia without obstruction or gangrene; D12.2 Benign neoplasm of ascending colon; K57.30 Diverticulosis of large intestine without perforation or abscess without bleeding; K31.5 Obstruction of duodenum

== ENCOUNTER → 2017-11-23 | Outpatient (CLI) | payer BC ==
[~2017-11-23] MED LIST changes: -LIDOCAINE HCL 2% 2 ML VIAL (20MG/ML) ONE; -PROPOFOL IV EMULSION 10 MG/ML 20 ML VIAL IV ONE; -SODIUM CHLORIDE 0.9% 500ML 500 ML IV ONE
--- NOTE | 2017-11-23 14:47 | DIAGNOSTIC IMAGING REPORT ---
THORACIC SPINE 3 VIEWS ROUTINE HISTORY: Pain M54.6 Thoracic back [id number] COMPARISON: None. FINDINGS: Moderate scoliosis. Considerable degenerative disc changes throughout. No evidence for an acute compression deformity. IMPRESSION: Considerable degenerative change. Scoliosis. The above report was generated using voice recognition software. It may contain grammatical, syntax or spelling errors. Electronically signed by: Joseph Ahuja M.D. 11/23/2017 2:46 PM Dictated Date/Time: 11/23/2017 2:45 PM
--- NOTE | 2017-11-23 14:56 | DIAGNOSTIC IMAGING REPORT ---
THORACOLUMBAR SPINE 2 VIEWS CLINICAL HISTORY: M54.6 Thoracic back [id number] pain COMPARISON STUDY: None FINDINGS: Moderate scoliosis. Considerable degenerative disc change throughout. Vacuum disc is identified at L5-S1. No evidence for compression deformity. IMPRESSION: Scoliosis. Considerable degenerative disc changes throughout. No acute process. The above report was generated using voice recognition software. It may contain grammatical, syntax or spelling errors. Electronically signed by: Joseph Ahuja M.D. 11/23/2017 2:54 PM Dictated Date/Time: 11/23/2017 2:54 PM
== END | disposition home or self-care (01) ==
LOC: C.RADBC 13:59
PROVIDERS: ATTEND Internal Medicine
DX: M54.6 Pain in thoracic spine (principal); M51.34 Other intervertebral disc degeneration, thoracic region; M41.84 Other forms of scoliosis, thoracic region